=== PATIENT | female | born 1945 | race Caucasian/White ===

== ENCOUNTER 2019-08-07 10:52 | Emergency (ER) | payer MEDICARE, BC ==
[~2019-08-07] VITALS: Ht 154.9 cm; Wt 67.7 kg
[2019-08-07 10:55] VITALS: BP 106/60
[2019-08-07] MEDS ORDERED: HYDROcodone/acetaminophen 5mg/325mg tablet PO ONE (11:15)
[2019-08-07] MEDS ORDERED: ondansetron 4mg rapidly disintigrating tab PO ONE (11:15)
[2019-08-07] MEDS ORDERED: ONDA4TAB6 PO (11:58)
[2019-08-07] MEDS ORDERED: HYDR-4383 PO (11:58)
== END 2019-08-07 12:50 | disposition home or self-care (01) ==
LOC: ER 10:52
DX: S42.212A Unspecified displaced fracture of surgical neck of left humerus, initial encounter for closed fracture (principal); I10 Essential (primary) hypertension; Z98.890 Other specified postprocedural states; Z79.899 Other long term (current) drug therapy; W01.198A Fall on same level from slipping, tripping and stumbling with subsequent striking against other object, initial encounter; Y93.89 Activity, other specified; Y92.89 Other specified places as the place of occurrence of the external cause; Y99.8 Other external cause status
CPT/HCPCS: 73030; 99283

== ENCOUNTER 2021-06-21 11:54 | Emergency (ER) | payer MEDICARE, BC ==
[~2021-06-21] VITALS: Ht 154.9 cm; Wt 68.2 kg
[~2021-06-21 11:54] MED LIST: HYDR-4383 PO; ONDA4TAB6 PO
[2021-06-21 12:09] VITALS: BP 152/70
[2021-06-21 15:56] LABS: ALANINE AMINOTRANSFERASE 23 U/L (12-78); ALBUMIN 3.6 G/DL (3.4-5.0); ALBUMIN/GLOBULIN RATIO 0.7 (1.1-1.5); ALKALINE PHOSPHATASE 128 IU/L (46-116); ANION GAP 9 (8-16); ASPARTATE AMINO TRANSFERASE 37 U/L (10-37); BASOPHILS % (AUTO) 0.2 % (0-1); BILIRUBIN,TOTAL 0.4 MG/DL (0.1-1.0); BLOOD UREA NITROGEN 20 MG/DL (7-18); CALCIUM 9.7 MG/DL (8.5-10.1); CHLORIDE 101 MMOL/L (99-107); CREATININE 1.05 MG/DL (0.40-0.90); EOSINOPHILS % (AUTO) 0.1 % (0-6); GLUCOSE 184 MG/DL (70-104); HEMATOCRIT 43.6 % (35.0-45.0); LYMPHOCYTES # (AUTO) 1.7 X10'3 (1.1-4.8); LYMPHOCYTES % (AUTO) 26.3 % (21-51); MEAN CORPUSCULAR HGB CONC 32.2 g/dL (33.0-36.5); MEAN CORPUSCULAR VOLUME 83.8 FL (78-98); MEAN PLATELET VOLUME 7.7 FL (7.4-10.4); MONOCYTES # (AUTO) 0.6 X10'3 (0-0.9); MONOCYTES % (AUTO) 8.4 % (2-12); NEUTROPHILS # (AUTO) 4.3 X10'3 (1.8-7.7); PLATELET COUNT 301 X10'3 (140-440); POTASSIUM 4.4 MMOL/L (3.5-5.1); RED CELL DISTRIBUTION WIDTH 16.9 % (11.5-14.5); SODIUM 136 MMOL/L (135-145); TOTAL CARBON DIOXIDE 26.1 MMOL/L (24-32); TOTAL PROTEIN 8.9 G/DL (6.4-8.2); WHITE BLOOD COUNT 6.7 X10'3 (4.5-11.0); eGFR 51 ML/MIN
== END 2021-06-21 17:19 | disposition home or self-care (01) ==
LOC: ER 11:54
DX: U07.1 COVID-19 (principal); R05.9 Cough, unspecified; R42 Dizziness and giddiness; E78.00 Pure hypercholesterolemia, unspecified; I10 Essential (primary) hypertension; E11.9 Type 2 diabetes mellitus without complications; Z79.899 Other long term (current) drug therapy
CPT/HCPCS: 36415; 71045; 80053; 84145; 84484; 85025; 87635; 93005; 99285; C9803